=== PATIENT | female | born 2000 | race Caucasian/White ===

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

== ENCOUNTER 2019-05-18 07:01 | Emergency (ER) | payer MEDICAID, OTHER ==
[~2019-05-18] VITALS: Ht 152.4 cm; Wt 50.8 kg
[2019-05-18 07:01] VITALS: BP_SYST 110
[~2019-05-18 07:01] MED LIST: ESCI10TA PO
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
--- NOTE | 2019-05-18 07:02 | NUR ---
Dr. Reid at bedside.
--- NOTE | 2019-05-18 07:06 | NUR ---
Written and verbal consent obtained from patient for blood alcohol, name and verified by patient. Disinfected patient's skin with Povidine/Iodine that did not contain alcohol or other volatile organic compound. Collected the blood from the subject named by venipuncture, in the presence of Officer brigid Mills# [id number]. Used a sterile, dry hypodermic needle and dry vacuum blood collection. Two dry vacuum blood collection was supplied by the officer named above. Withdrew a specimen of blood from LAC of the subject named above. Inverted both blood tube several times to ensure that the preservative and anticoagulant were thoroughly mixed in the blood specimen. I initialed both blood tube label for identification. The labeled blood tubes was handed directly to the Officer named above. The blood tubes stopper remained in place while I had possession of the blood tubes. The Officer placed tubes into envelope and sealed it in my presence. Envelope initialed by myself and Officer named above. Patient tolerated well, bandage applied, and bleeding controlled.
[2019-05-18] MEDS ORDERED: IBUPROFEN 800 MG TABLET PO ONE (07:15)
[2019-05-18 07:22] VITALS: BP_SYST 110
--- NOTE | 2019-05-18 07:22 | NUR ---
Officer Gene given pts written and verbal discharge instructions and verbalizes understanding. ER MD discussed with patient the results and treatment provided. Patient in stable condition. ID arm band removed. No Rx given. Patient educated on pain management and to follow up with PMD. Pain Scale 2/10, medicated prior to dispo. Opportunity for questions provided and answered. Medication side effect fact sheet provided. Pt leaves in c/o [facility] to longterm.
== END 2019-05-18 07:06 ==
LOC: SED 07:01
DX: Z02.89 Encounter for other administrative examinations (principal); Z79.899 Other long term (current) drug therapy; F10.129 Alcohol abuse with intoxication, unspecified; V49.9XXA Car occupant (driver) (passenger) injured in unspecified traffic accident, initial encounter; Y93.89 Activity, other specified; Y92.89 Other specified places as the place of occurrence of the external cause; Y99.8 Other external cause status
CPT/HCPCS: 99283

== ENCOUNTER 2019-09-24 05:40 | Emergency (ER) | payer MEDICAID, OTHER ==
[~2019-09-24] VITALS: Ht 152.4 cm; Wt 50.8 kg
[2019-09-24 05:45] VITALS: BP_SYST 105
[2019-09-24 07:55] VITALS: BP_SYST 101
== END 2019-09-24 07:54 | disposition home or self-care (01) ==
LOC: SED 05:40
DX: J40 Bronchitis, not specified as acute or chronic (principal); Z79.899 Other long term (current) drug therapy
CPT/HCPCS: 99283

== ENCOUNTER 2021-07-17 08:12 | Emergency (ER) | payer MEDICAID ==
[~2021-07-17] VITALS: Ht 152.4 cm; Wt 52.2 kg
[2021-07-17 08:12] VITALS: BP_SYST 101
--- NOTE | 2021-07-17 08:12 | NUR ---
BROUGHT BACK TO BED #8 AND TRIAGED. REPORT GIVEN TO GRETA
--- NOTE | 2021-07-17 08:15 | NUR ---
Pt walked in to ER with c/o urinary symptoms, pain, burning, urgency and frequency x4 days. Reports attempting to treat with OTC meds but still having symptoms. Denies flank pain, fever or n/v at this time. V/S stable, no acute distress noted.
--- NOTE | 2021-07-17 08:30 | NUR ---
ER Dr. Novoa at bedside examining patient.
[2021-07-17 08:54] LABS: BILIRUBIN,URINE 1+ (NEGATIVE); BLOOD, URINE 3+ (NEGATIVE); CLARITY/URINE CLEAR (CLEAR); COLOR,URINE ORANGE (YELLOW); GLUCOSE,URINE TRACE (NEGATIVE); KETONES,URINE TRACE (NEGATIVE); LEUKOCYTE ESTERASE ,URINE TRACE (NEGATIVE); NITRITE, URINE POSITIVE (NEGATIVE); PROTEIN URINE 2+ (NEGATIVE)
[2021-07-17 09:03] LABS: BACTERIA,URINE FEW /HPF (None Seen); MUCUS,URINE 2+ /LPF (None Seen)
[2021-07-17] MEDS ORDERED: NITR-85 PO (10:24)
[2021-07-17 10:29] VITALS: BP_SYST 101
--- NOTE | 2021-07-17 10:30 | NUR ---
Patient given written and verbal discharge instructions and verbalizes understanding. ER MD discussed with patient the results and treatment provided. Patient in stable condition. ID arm band removed. Rx of Macrobid given. Patient educated on pain management and to follow up with PMD. Pain Scale 0. Opportunity for questions provided and answered. Medication side effect fact sheet provided.
== END 2021-07-17 10:30 | disposition home or self-care (01) ==
LOC: SED 08:12
DX: N39.0 Urinary tract infection, site not specified (principal); J45.909 Unspecified asthma, uncomplicated; Z79.899 Other long term (current) drug therapy
CPT/HCPCS: 81000; 81025; 87086; 99283

== ENCOUNTER 2023-05-16 11:27 | Emergency (ER) | payer MEDICAID ==
[~2023-05-16] VITALS: Ht 154.9 cm; Wt 57.6 kg
[~2023-05-16 11:27] MED LIST changes: +NITR-85 PO
[2023-05-16] MEDS ORDERED: CETI10CA PO (11:32)
[2023-05-16] MEDS ORDERED: FLUT100B INH (11:32)
[2023-05-16] MEDS ORDERED: FLUT16SP24 INH (11:33)
[2023-05-16 11:39] VITALS: BP_SYST 110; PULSE 81; RESP 18; TEMP 98.2; O2SAT 95
[2023-05-16] MEDS ORDERED: PRED20TA PO (12:52)
[2023-05-16] MEDS ORDERED: GUAI100S14 PO (12:52)
[2023-05-16] MEDS ORDERED: BENZ100C92 PO (12:52)
[2023-05-16 13:22] LABS: INFLUENZA TYPE A negative (NEGATIVE); INFLUENZA TYPE B NEGATIVE (NEGATIVE)
[2023-05-16 13:24] LABS: COVID19 ANTIGEN SOFIA FIA NEGATIVE (NEGATIVE)
== END 2023-05-16 13:14 | disposition home or self-care (01) ==
LOC: SED 11:27
DX: J06.9 Acute upper respiratory infection, unspecified (principal); R05.9 Cough, unspecified; R06.02 Shortness of breath; J45.909 Unspecified asthma, uncomplicated; Z79.899 Other long term (current) drug therapy; Z20.822 Contact with and (suspected) exposure to COVID-19
CPT/HCPCS: 36415; 99283